=== PATIENT | female | born 1945 | race Caucasian/White ===

== ENCOUNTER → 2017-09-09 | Day surgery (SDC) | payer OTHER, MEDICARE ==
[~2017-09-09] VITALS: Ht 170.2 cm; Wt 75.3 kg
--- NOTE | 2017-09-09 13:51 | Operative Report ---
Operative/Inv Procedure Report Surgery Date: 09/09/17 Name of Procedure: Right partial mastectomy and sentinel lymph node biopsy Pre-Operative Diagnosis: Right breast cancer Post-Operative Diagnosis: Same Estimated Blood Loss: less than 50ml Surgeon/Manager Career: Lisa Morgan MD Anesthesia: laryngeal mask airway Specimens: Right lumpectomy, cranial margin, caudal margin, medial margin, lateral margin, deep margin, sentinel lymph node 2 Operative/Procedure Note Note: Patient has a known invasive breast cancer and is brought to the operating room for definitive surgery. Preoperative lymphoscintigraphy was performed and those films reviewed. Anesthesia was administered as well as 2 g of Ancef. The right breast was prepped and draped in sterile fashion using ChloraPrep. 3 cc of methylene blue diluted with 2 cc of saline was injected in the retroareolar fashion. The breast was approached first. The masses palpable in the 9 o'clock position 2 cm from the nipple. Given its superficial location, a skin ellipse was excised over the palpable lesion and subcutaneous tissue was dissected medially and laterally. The lumpectomy was performed to encompass the area of the palpable abnormality. The specimen was removed and marked for orientation as a margin map. Intraoperative x-ray confirmed the presence of the clip and specimen. Additional margins were taken in the cranial, caudal, medial, lateral , deep positions. Hemostasis was achieved using electrocautery. Mammary clips were used to wiliam the margins of the lumpectomy bed. The axilla was then approached. After administering local anesthesia a transverse incision was made in the lower axilla. The axilla was explored. Increased radiotracer was identified deep in the axilla. Level 2 lymph nodes were exposed and one lymph node had counts to 300. An additional lymph node had counts to 60. This was marked as sentinel lymph node 2. Hemostasis was achieved using mammary clips. The wound was irrigated. Hemostasis was adequate and the deep tissue was approximated using interrupted Vicryl sutures. Likewise breast tissue was reapproximated to close lumpectomy defect using Vicryl sutures. Skin incisions were closed using Biosyn subcuticular stitches. Steri-Strips and sterile dressings were applied and the patient was transferred to the recovery room in satisfactory condition having tolerated the procedure well.
--- NOTE | 2017-09-09 22:25 | MAMMOGRAPHY REPORT ---
EXAMINATION: MM SPECIMEN FROM THE BREAST, RIGHT CLINICAL INDICATION: Specimen radiograph of the excised invasive ductal carcinoma. COMPARISON: Ultrasound and mammogram dated 07/22/2017. TECHNIQUE: Single radiograph of the specimen was obtained. FINDINGS: The radiograph of the excised surgical specimen shows that the marker clip is identified in the specimen. IMPRESSION: Satisfactory excision of the targeted lesion.
== END ==
LOC: CBW.IIU 08-26 07:00 → STS 08-26 07:00 → CBW.IIU 08-26 08:00 → STS 08-26 08:00 → CBW.US 08-26 08:30 → STS 08-26 08:30
DX: C50.811 Malignant neoplasm of overlapping sites of right female breast (principal); Z17.0 Estrogen receptor positive status [ER+]; I10 Essential (primary) hypertension; E03.9 Hypothyroidism, unspecified; M19.90 Unspecified osteoarthritis, unspecified site; Z87.891 Personal history of nicotine dependence
CPT/HCPCS: J0131; J2001; J2250; Q9968

== ENCOUNTER → 2017-10-21 | Day surgery (SDC) | payer OTHER, MEDICARE ==
[~2017-10-21] VITALS: Ht 170.2 cm; Wt 77.6 kg
--- NOTE | 2017-10-21 09:02 | Operative Report ---
Operative/Inv Procedure Report Surgery Date: 10/21/17 Name of Procedure: Reexcision right lumpectomy Pre-Operative Diagnosis: Right breast cancer, status post lumpectomy with close margin for DCIS Post-Operative Diagnosis: Same Estimated Blood Loss: scant Surgeon/Security Officer Supervisor: Lisa Morgan MD Anesthesia: local monitored anesthesi Specimens: Lateral margin Operative/Procedure Note Note: Patient status post a right partial mastectomy with sentinel lymph node biopsy. Pathology showed a close lateral margin. She is brought for reexcision. She is brought to the operating room placed under anesthesia. 2 g of Ancef was given. The left breast was prepped and draped in a sterile fashion using ChloraPrep. Local anesthesia 1% lidocaine mixed half percent Marcaine was given in the previous incision was incised. Subcutaneous tissue was dissected and the lumpectomy cavity was entered. Clips were identified and the lateral margin was clearly identified. This was excised widely. Margin map markers were used orient the specimen with the lateral clip on the true lateral margin. Hemostasis was achieved using electrocautery. Mammary clips are replaced. Deep tissue was approximated using interrupted Vicryl sutures and skin was closed using a running Biosyn subcutaneous color stitch. Steri-Strips and sterile dressings were applied and patient transferred to the recovery room in satisfactory condition having tolerated the procedure well.
== END ==
LOC: STS 10-10 07:00
DX: C50.911 Malignant neoplasm of unspecified site of right female breast (principal); Z17.0 Estrogen receptor positive status [ER+]; E03.9 Hypothyroidism, unspecified; I10 Essential (primary) hypertension
CPT/HCPCS: J0690; J2001; J2250